=== PATIENT | male | born 1985 | race Caucasian/White ===

== ENCOUNTER → 2017-05-12 19:26 | Outpatient (CLI) | payer MEDICAID ==
[2017-05-12 19:47] LABS: UDS - AMPHET NEGATIVE QUAL (NEGATIVE); UDS - BARB NEGATIVE QUAL (NEGATIVE); UDS - BENZO NEGATIVE QUAL (NEGATIVE); UDS - COCAINE NEGATIVE QUAL (NEGATIVE); UDS - OPIATE POSITIVE QUAL (NEGATIVE); UDS - PCP NEGATIVE QUAL (NEGATIVE); UDS - THC NEGATIVE QUAL (NEGATIVE)
== END | disposition home or self-care (01) ==
LOC: D.LABREF 19:26
PROVIDERS: Emergency Medicine
DX: F11.20 Opioid dependence, uncomplicated (principal)

== ENCOUNTER → 2017-05-13 14:47 | Outpatient (CLI) | payer MEDICAID ==
[2017-05-13 15:26] LABS: UDS - AMPHET POSITIVE QUAL (NEGATIVE); UDS - BARB NEGATIVE QUAL (NEGATIVE); UDS - BENZO NEGATIVE QUAL (NEGATIVE); UDS - COCAINE NEGATIVE QUAL (NEGATIVE); UDS - OPIATE POSITIVE QUAL (NEGATIVE); UDS - PCP NEGATIVE QUAL (NEGATIVE); UDS - THC NEGATIVE QUAL (NEGATIVE)
[2017-05-18 07:15] LABS: UDSC - AMPHET Positive (Cutoff=1000); UDSC - BARB Negative ng/mL (Cutoff=300); UDSC - BENZO Negative ng/mL (Cutoff=300); UDSC - COC Negative ng/mL (Cutoff=300); UDSC - METH Negative ng/mL (Cutoff=300); UDSC - OPIATES Negative (Cutoff=300); UDSC - PCP Negative ng/mL (Cutoff=25); UDSC - PROPOXY Negative ng/mL (Cutoff=300); UDSC - THC Negative ng/mL (Cutoff=50)
== END | disposition home or self-care (01) ==
LOC: D.LAB 14:47
PROVIDERS: Emergency Medicine
DX: F11.20 Opioid dependence, uncomplicated (principal)

== ENCOUNTER → 2017-05-22 19:19 | Outpatient (CLI) | payer MEDICAID ==
[2017-05-22 19:47] LABS: UDS - AMPHET NEGATIVE QUAL (NEGATIVE); UDS - BARB NEGATIVE QUAL (NEGATIVE); UDS - BENZO NEGATIVE QUAL (NEGATIVE); UDS - COCAINE NEGATIVE QUAL (NEGATIVE); UDS - OPIATE NEGATIVE QUAL (NEGATIVE); UDS - PCP NEGATIVE QUAL (NEGATIVE); UDS - THC NEGATIVE QUAL (NEGATIVE)
== END | disposition home or self-care (01) ==
LOC: D.LAB 19:19
PROVIDERS: Emergency Medicine
DX: F11.20 Opioid dependence, uncomplicated (principal)

== ENCOUNTER 2020-01-08 05:35 | Day surgery (SDC) | payer OTHER ==
[2020-01-07 12:16] LABS: BASOPHILS 0.2 % (0-2); EOSINOPHILS 1.4 % (0-7); HEMATOCRIT 45.6 % (42.0-54.0); HEMOGLOBIN 15.4 g/dL (13.5-17.5); IMMATURE GRANULOCYTES 0.2 % (0-5); LYMPHOCYTES 26.9 % (15-50); MCH 31.5 pg (26.0-34.0); MCHC 33.8 g/dL (31.0-37.0); MCV 93.3 fL (80.0-100.0); MEAN PLATELET VOLUME 9.4 fL (7.4-10.4); MONOCYTES 4.7 % (2-11); NEUTROPHILS 66.6 % (40-80); PLATELET COUNT 217 10x3/uL (130-400); RBC 4.89 10x6/uL (4.20-6.10); RDW 13.6 % (11.5-14.5); WBC 8.1 10x3/uL (4.8-10.8)
[2020-01-07 12:24] LABS: CALC OSMOLALITY 278 mosm/kg (275-300); CALCIUM 9.3 mg/dL (8.5-10.1); CHLORIDE - SERUM 103 mmol/L (98-107); GLUCOSE 93 mg/dL (74-106); POTASSIUM - SERUM 4.5 mmol/L (3.5-5.1); SODIUM 140 mmol/L (136-145); UREA NITROGEN 12 mg/dL (7-18); eGFR NON AFRICAN AMERICAN 90 mL/min (90-120)
[~2020-01-08] VITALS: Ht 177.8 cm; Wt 101.2 kg
--- NOTE | ~2020-01-08 | OP ---
PATIENT NAME: CLAUDE BRADY MEDICAL RECORD: [id number] :81 LOCATION:[facility] ADMISSION DATE: SURGEON: JASIEL MASON MD DATE OF OPERATION: 01/08/2020 PREOPERATIVE DIAGNOSES: 1. Left inguinal hernia. 2. Hypertension. 3. Hypercholesterolemia. 4. Tobacco dependence syndrome. POSTOPERATIVE DIAGNOSES: 1. Left inguinal hernia. 2. Hypertension. 3. Hypercholesterolemia. 4. Tobacco dependence syndrome. PROCEDURE: Left inguinal hernia repair with large PHS mesh. SURGEON: Jasiel Mason MD REPORT OF PROCEDURE: The patient's left groin was prepped and draped in sterile fashion. An oblique incision was made above the inguinal ligament. Electrocautery was used to dissect through the subcutaneous tissues to the external oblique fascia. This fascia was opened up to the external ring using Metzenbaum scissors. The spermatic cord was then elevated and a Vinh placed around it. The patient had a couple of branches of nerve tissue and these were high ligated. These nerves appear to be consistent with the ilioinguinal nerve bundles. The patient had a small cord lipoma and this was dissected from the spermatic cord and high ligated with 3-0 silk. The patient then had a long thin hernia sac that was coming in an indirect fashion. We were able to dissect this from the spermatic cord without any injury to the spermatic cord structures. This hernia sac was then high ligated and tied off with 3-0 silk. We opened up the inguinal floor and opened the preperitoneal space of Retzius. A large PHS mesh was then inserted into this space and sutured down on all 4 sides using multiple interrupted 0 Vicryls. We irrigated out the wound with normal saline. The external oblique fascia was closed with running 2-0 Vicryls, Keisha's was closed with interrupted 3-0 Vicryls, and the skin was closed with running subcutaneous 5-0 Monocryl. A total of 10 mL of 0.25% Marcaine with epinephrine was infused into the surrounding tissues and the wound was dressed appropriately. COMPLICATIONS: None. CONDITION: Stable. ANESTHESIA: General endotracheal and local. BLOOD LOSS: Minimal. NTS:[id number] Voice Confirmation ID: [id number] DOCUMENT ID: [id number] OPERATIVE REPORT [id number] CLAUDE JASIEL SMITH MD CC: CLARY ANDERSON MD [id number] DICTATION DATE: 01/08/20 0852 LEGAL FILE CLERK: 01/08/[address] [facility] 01/08/20 [place] [id number] [place] [id number]
[~2020-01-08 05:35] MED LIST: ASPIRIN325 MG PO; OMEPRAZOLE20 M1
[2020-01-08 06:33] VITALS: BP 109/69; Ht 177.8 cm; Wt 101.2 kg
[2020-01-08] MEDS ORDERED: HYDROCODON-ACE1 EA10 PO (08:41)
--- NOTE | 2020-01-08 09:42 | NUR ---
0918 RETURNED TO ROOM.
== END 2020-01-08 10:25 | disposition home or self-care (01) ==
LOC: D.OPS 05:35
PROVIDERS: ATTEND Surgery
DX: K40.90 Unilateral inguinal hernia, without obstruction or gangrene, not specified as recurrent (principal); I10 Essential (primary) hypertension; E78.00 Pure hypercholesterolemia, unspecified; F17.200 Nicotine dependence, unspecified, uncomplicated